=== PATIENT | female | born 1965 | race Two or more races ===

== ENCOUNTER 2018-04-18 18:36 | Emergency (ER) | payer SELFPAY ==
[~2018-04-18] VITALS: Ht 160 cm; Wt 68.0 kg
[2018-04-18 18:44] VITALS: BP 161/91
== END 2018-04-18 22:18 | disposition left against medical advice (07) ==
LOC: ER 18:36
DX: R51 Headache (principal); Z53.21 Procedure and treatment not carried out due to patient leaving prior to being seen by health care provider